=== PATIENT | female | born 1975 | race Caucasian/White ===

== ENCOUNTER 2017-04-23 05:27 | Emergency (ER) | payer OTHER ==
[~2017-04-23 05:27] MED LIST: ALBUTEROL INHALER; ALDACTONE25 MG; ATENOLOL50 MG PO; GLIPIZIDE5 MG PO; LEVOTHROID50 MCG PO; LEVOTHYROXINE50 MCG PO; MECLIZINE HCL12.5 MG PO; METFORMIN HCL500 MG PO; NORCO 5-325 TA1 EACH PO; OMEPRAZOLE40 MG PO; PANTOPRAZOLE SO40 MG PO; PROMETHAZINE HC25 M1 PO; PROZAC40 MG PO; SYNTHROID200 MCG PO; TOPAMAX100 MG PO; ZANAFLEX4 M1 PO; ZOLPIDEM TARTRA10 MG PO
[2017-04-23] MEDS ORDERED: SODIUM CHLORIDE 0.9% 1000ML 1,000 ML ONE (06:12)
[2017-04-23 06:13] LABS: BASOPHILS % 0.7 % (0.0-1.0); BILIRUBIN,URINE 1+ (NEGATIVE); EOSINOPHILS # (AUTO) 0.1 (0.0-0.4); EOSINOPHILS % 2.2 % (0.0-6.0); HEMATOCRIT 43.9 % (34.2-44.1); HEMOGLOBIN 14.4 g/dL (12.0-16.0); KETONES,URINE NEGATIVE (NEGATIVE); LEUKOCYTE ESTERASE ,URINE NEGATIVE (NEGATIVE); LYMPHOCYTES # (AUTO) 1.3 (1.0-3.2); LYMPHOCYTES % 22.1 % (18.0-39.1); MEAN CORPUSCULAR HEMOGLOBIN 28.4 pg (28-32); MEAN CORPUSCULAR HGB CONC 32.8 g/dL (31-35); MEAN CORPUSCULAR VOLUME 86.6 fL (81-99); MONOCYTES # (AUTO) 0.6 (0.2-0.8); MONOCYTES % 9.5 % (4.4-11.3); NEUTROPHILS # (AUTO) 3.7 (2.1-6.9); NEUTROPHILS % 64.6 % (38.7-80.0); NITRITE,URINE NEGATIVE (NEGATIVE); PLATELET COUNT 183 x10e3/uL (140-360); PROTEIN,URINE DIPSTICK NEGATIVE (NEGATIVE); RED BLOOD COUNT 5.07 x10e6/uL (3.6-5.1); RED CELL DISTRIBUTION WIDTH 13.3 % (11.7-14.4); URINE UROBILINOGEN 1 mg/dL (0.2 - 1)
[2017-04-23] MEDS ORDERED: KETOROLAC TROMETHAMINE 30 MG/ML VIAL ONE (06:14)
[2017-04-23] MEDS ORDERED: HYDROMORPHONE 1MG/1ML INJ ONE (06:15)
[2017-04-23] MEDS ORDERED: ONDANSETRON HCL INJ 2 MG/ML VIAL ONE (06:15)
[2017-04-23 06:16] LABS: PREGNANCY TEST, URINE NEGATIVE (NEGATIVE)
[2017-04-23 06:25] LABS: ALANINE AMINOTRANSFERASE 19 IU/L (0-55); ALBUMIN 3.9 g/dL (3.5-5.0); ALBUMIN/GLOBULIN RATIO 1.1 (0.8-2.0); ALKALINE PHOSPHATASE 60 IU/L (40-150); ANION GAP 15.1 mmol/L (8-16); BLOOD UREA NITROGEN 15 mg/dL (7-26); BUN/CREATININE RATIO 17 (6-25); CARBON DIOXIDE 24 mmol/L (22-29); CHLORIDE 106 mmol/L (98-107); CLARITY,URINE HAZY (CLEAR); COLOR,URINE YELLOW (YELLOW); CREATININE, SERUM 0.86 mg/dL (0.57-1.11); EST GLOMERULAR FILTRATION RATE > 60 ML/MIN (60-); GLUCOSE 185 mg/dL (74-118); MAGNESIUM 1.9 MG/DL (1.3-2.1); POTASSIUM 4.1 mmol/L (3.5-5.1); SODIUM 141 mmol/L (136-145)
[2017-04-23 06:26] LABS: BACTERIA,URINE MODERATE /HPF; EPITHELIAL CELLS,URINE MODERATE /LPF; WBC,URINE (MAN) 0-5 /HPF (0-5)
--- NOTE | 2017-04-23 07:47 | Diagnostic Imaging Report ---
PROCEDURE: CT ABDOMEN AND PELVIS WITHOUT CONTRAST TECHNIQUE: The abdomen and pelvis were scanned utilizing a multidetector helical scanner from the diaphragm to the lesser trochanter. No oral or intravenous contrast was administered per referring physician request. Coronal and sagittal multiplanar reformations were obtained. COMPARISON: 09/20/2016. INDICATIONS: LEFT LOWER ABDOMEN PAIN FINDINGS: ABSENCE OF INTRAVENOUS CONTRAST DECREASES SENSITIVITY FOR DETECTION OF FOCAL LESIONS AND VASCULAR PATHOLOGY. Examination is further limited by patient body habitus, resulting in beam hardening artifact from multiple contact points with the scanner gantry. LOWER THORAX: 3 mm nodule along the right major fissure is unchanged and likely represents an intrapulmonary lymph node. Ground glass opacity laterally within the right lower lobe compatible with subsegmental atelectasis. HEPATOBILIARY: No focal hepatic lesion or intrahepatic biliary ductal dilatation. The gallbladder has been removed. SPLEEN: No splenomegaly. PANCREAS: No focal masses or ductal dilatation. ADRENALS: No adrenal nodules. KIDNEYS/URETERS: Punctate nonobstructing calculus in the interpolar right kidney is unchanged. Punctate adjacent nonobstructing calculi in the lower pole of the left kidney are unchanged. No ureteral or bladder calculi. No hydronephrosis. PELVIC ORGANS/BLADDER: Urinary bladder is incompletely distended but otherwise unremarkable. Uterus is anteflexed and appears normal. No adnexal mass. PERITONEUM / RETROPERITONEUM: No free air or fluid. LYMPH NODES: No pelvic sidewall, retroperitoneal, or mesenteric lymphadenopathy. VESSELS: Limited evaluation without intravenous contrast. The abdominal aorta is non-aneurysmal. GI TRACT: The large bowel shows no evidence of distention or wall thickening. Gas and fecal material are noted throughout. A few diverticula are again identified along the descending and sigmoid colon without evidence of diverticulitis. The appendix is normal. The stomach is collapsed with prominence of the rugal folds. Small diverticula arise from the fourth portion of the duodenum, unchanged. No small bowel dilatation to suggest obstruction. BONES AND SOFT TISSUES: No focal soft tissue abnormalities. No osseous destructive lesions. Multilevel degenerative disc changes of the thoracic and lumbar spine. IMPRESSION: No acute intra-abdominal or pelvic CT abnormalities. Bilateral nonobstructing renal calculi. Sigmoid diverticulosis without evidence of diverticulitis. Dictated by: Juanjose Sathl M.D. on 04/23/2017 at 7:47 Electronically approved by: Juanjose Stahl M.D. on 04/23/2017 at 7:47
[2017-04-23 08:30] VITALS: BP 128/74
== END 2017-04-23 08:54 | disposition home or self-care (01) ==
LOC: ER 05:27
DX: N20.0 Calculus of kidney (principal); E11.9 Type 2 diabetes mellitus without complications; E03.9 Hypothyroidism, unspecified; E28.2 Polycystic ovarian syndrome
CPT/HCPCS: 36415; 74176; 80053; 81001; 81025; 83735; 85025; 87086; 99283; J1170; J1885; J2405; J7030

== ENCOUNTER → 2017-05-15 | Day surgery (SDC) | payer OTHER ==
[2017-05-12 12:55] LABS: BASOPHILS % 0.4 % (0.0-1.0); EOSINOPHILS # (AUTO) 0.1 (0.0-0.4); HEMATOCRIT 40.8 % (34.2-44.1); HEMOGLOBIN 13.7 g/dL (12.0-16.0); LYMPHOCYTES # (AUTO) 1.5 (1.0-3.2); LYMPHOCYTES % 30.1 % (18.0-39.1); MEAN CORPUSCULAR HEMOGLOBIN 28.4 pg (28-32); MEAN CORPUSCULAR HGB CONC 33.6 g/dL (31-35); MEAN CORPUSCULAR VOLUME 84.6 fL (81-99); MONOCYTES # (AUTO) 0.5 (0.2-0.8); MONOCYTES % 9.8 % (4.4-11.3); NEUTROPHILS # (AUTO) 2.9 (2.1-6.9); NEUTROPHILS % 57.1 % (38.7-80.0); PLATELET COUNT 158 x10e3/uL (140-360); RED BLOOD COUNT 4.82 x10e6/uL (3.6-5.1)
[~2017-05-15] MED LIST changes: +BELLADONNA/OPIUM 60 MG SUPP PR ONE; +CEFAZOLIN SOD 1 GM VIAL ONE; +CEFTRIAXONE SOD 1 GM VIAL ONE; +DEXAMETHASONE SOD PHOS INJ 4 MG/ML VIAL ONE; +DICYCLOMINE HCL20 MG PO; +DIPHENOXYLATE-1 EACH PO; +FENTANYL CITRATE/PF 100MCG/2 ML INJ ONE; +FLOMAX0.4 MG PO; +FLUCONAZOLE100 MG PO; +HYDROXYZINE HCL50 MG PO; +IBUPROFEN400 MG PO; +IOPAMIDOL 610MG/1ML 300 MG/ML VIAL IV ONE; +LIDOCAINE HCL 2% LOCAL INJ 5 ML SDV VIAL INJ ONE; +LORZONE750 MG PO; +METRONIDAZOLE45 GM TOP; +MIDAZOLAM HCL 2 MG/2 ML VIAL ONE; +MINOCYCLINE HCL50 MG PO; +MONTELUKAST SOD10 MG PO; +NEOMYCIN-POLYMY10 M1 EACH EAR; +NORCO 7.5-3251 EACH PO; +ONDANSETRON HCL INJ 2 MG/ML VIAL ONE; +PENCILLIN V PO250 MG PO; +PRO AIR INH; +PROPOFOL IV EMULSION 10 MG/ML 20 ML VIAL ONE; +REGLAN10 MG PO; +SEVOFLURANE INHAL SOLN 250 ML PEN BTL ONE; +ZOFRAN ODT4 MG PO
--- OUTSIDE RECORDS SUMMARY | 2017-05-15 07:38 | XMS REPORT | Continuity of Care Document ---
Author Author [facility] Organization [facility] Address [address] [place] [address] Phone Unavailable Care Team Providers Care Pizzamaker Name Role Phone CARLOTTA MARIO DO PCP Insurance Providers Guarantor Shakeel Cordero Address [address] [place] [address] Email NONE Payer [facility] Policy Number [id number] Subscriber's Name ConsueloLuisShakeel R Relationship 18 Self / Same As Patient Group Number [id number] Group Name [employer] Effective Date 06 Advance Directives Directive Response Recorded Date/Time Does the patient have an advance directive? No 06/10/12 11:10pm If yes, is advance directive [facility]? No 04/17/08 2:10pm If not on file with [facility] will patient provide a copy? No 03/18/12 1:55pm Do you have a Directive to Physician? No 04/23/17 7:18am Do you have a Medical Power of Doll Wig Maker? No 04/23/17 7:18am Do you have an out of hospital Do Not Resuscitate Order? No 04/23/17 7:18am Do you have any special needs we should be aware of? No 04/23/17 7:18am Do you have a support person here with you today? No 04/23/17 7:18am Did patient receive Notice of Privacy Practices? Yes 04/23/17 7:18am Did patient receive patient rights and responsibilities? Yes 04/23/17 7:18am Problems Medical Problem Onset Date Status Renal colic Unknown Acute Sinusitis Unknown Acute Urinary tract infection Unknown Acute Medications Current Home Medications Medication Dose Units Route Directions Days Qty Instructions Start Date Glipizide 5 Mg Tablet 5 Mg Oral Daily Levothyroxine Sodium 50 Mcg Tablet 50 Mcg Oral Daily 30 Tab Past Home Medications Medication Directions Ordered Status Albuterol Inhaler , As Needed Discontinued Atenolol 50 Mg Tablet, 50 Mg Oral Daily Discontinued Fluoxetine Hcl (Prozac) 40 Mg Capsule, 40 Mg Oral Daily Discontinued Hydrocodone Bit/Acetaminophen ([place] 5-325 Tablet) 1 Each Tablet, 1 Tab Oral Every 6 Hours as needed Discontinued Levothyroxine Sodium (Synthroid) 200 Mcg Tablet, 0.25 Mcg Oral Daily Discontinued Levothyroxine Sodium (Levothroid) 50 Mcg Tablet, 50 Mcg Oral Daily Discontinued Meclizine Hcl 12.5 Mg Tablet, 12.5 Mg Oral As Needed Discontinued Omeprazole 40 Mg Capsule.dr, 40 Mg Oral Daily Discontinued Pantoprazole Sodium (Protonix) 40 Mg Tablet.dr, 40 Mg Oral Daily Discontinued Promethazine Hcl 25 Mg Tablet, 25 Mg Oral As Needed Discontinued Spironolactone (Aldactone) 25 Mg Tablet, Discontinued Tizanidine Hcl (Zanaflex) 4 Mg Capsule, 4 Mg Oral Three Times A Day as needed Discontinued Topiramate (Topamax*) 100 Mg Tablet, 100 Mg Oral Discontinued Zolpidem Tartrate 10 Mg Tablet, 10 Mg Oral Bedtime as needed Discontinued Social History Social History Problem Response Recorded Date/Time Onset Date Status Hx Psychiatric Problems No 06/10/2012 11:10pm Not Applicable Not Applicable Hx Eating Disorder No 06/10/2012 11:10pm Not Applicable Not Applicable Hx Substance Use Disorder No 06/10/2012 11:10pm Not Applicable Not Applicable Hx Depression No 06/10/2012 11:10pm Not Applicable Not Applicable Hx Alcohol Use No 06/10/2012 11:10pm Not Applicable Not Applicable Hx Substance Use Treatment No 06/10/2012 11:10pm Not Applicable Not Applicable Hx Physical Abuse No 06/10/2012 11:10pm Not Applicable Not Applicable Hospital Discharge Instructions No hospital discharge instruction information available. Plan of Care Discharge Date 04/23/17 8:54am Disposition HOME, SELF-CARE Condition at Discharge Stable Instructions/Education Provided Kidney Stones Forms Provided Work/School Excuse Prescriptions See Medication Section Referrals CARLOTTA MARIO Address: [address] [place] [id number] Additional Instructions/Education follow up with pcp take meds as directed Functional Status No functional status information available. Allergies, Adverse Reactions, Alerts No known allergies. Immunizations No immunization information available. Vital Signs Acute Vital Signs Vital Response Date/Time Blood Pressure 128/74 mm Hg 04/23/2017 8:30am Results Laboratory Results Test Name Result Units Flags Reference Collection Date/Time Result Date/ Time Comments White Blood Count 5.78 x10e3/uL 4.8-10.8 04/23/2017 5:45am 04/23/2017 6 :15am Red Blood Count 5.07 x10e6/uL 3.6-5.1 04/23/2017 5:45am 04/23/2017 6: 15am Hemoglobin 14.4 g/dL 12.0-16.0 04/23/2017 5:45am 04/23/2017 6:15am Hematocrit 43.9 % 34.2-44.1 04/23/2017 5:45am 04/23/2017 6:15am Mean Corpuscular Volume 86.6 fL 81-99 04/23/2017 5:45am 04/23/2017 6: 15am Mean Corpuscular Hemoglobin 28.4 pg 28-32 04/23/2017 5:45am 04/23/2017 6:15am Mean Corpuscular Hemoglobin Concent 32.8 g/dL 31-35 04/23/2017 5:45am 04/23/2017 6:15am Red Cell Distribution Width 13.3 % 11.7-14.4 04/23/2017 5:45am 2017 6:15am Platelet Count 183 x10e3/uL 140-360 04/23/2017 5:45am 04/23/2017 6: 15am Neutrophils (%) (Auto) 64.6 % 38.7-80.0 04/23/2017 5:45am 04/23/2017 6: 15am Lymphocytes (%) (Auto) 22.1 % 18.0-39.1 04/23/2017 5:45am 04/23/2017 6: 15am Monocytes (%) (Auto) 9.5 % 4.4-11.3 04/23/2017 5:45am 04/23/2017 6: 15am Eosinophils (%) (Auto) 2.2 % 0.0-6.0 04/23/2017 5:45am 04/23/2017 6: 15am Basophils (%) (Auto) 0.7 % 0.0-1.0 04/23/2017 5:45am 04/23/2017 6:15am IM GRANULOCYTES % 0.9 % 0.0-1.0 04/23/2017 5:45am 04/23/2017 6:15am Neutrophils # (Auto) 3.7 2.1-6.9 04/23/2017 5:45am 04/23/2017 6:15am Lymphocytes # (Auto) 1.3 1.0-3.2 04/23/2017 5:45am 04/23/2017 6:15am Monocytes # (Auto) 0.6 0.2-0.8 04/23/2017 5:45am 04/23/2017 6:15am Eosinophils # (Auto) 0.1 0.0-0.4 04/23/2017 5:45am 04/23/2017 6:15am Basophils # (Auto) 0.0 0.0-0.1 04/23/2017 5:4504/23/2017 6:15am Absolute Immature Granulocyte (auto 0.05 x10e3/uL 0-0.1 04/23/2017 5: 4504/23/2017 6:15am Urine Color YELLOW YELLOW 04/23/2017 5:4504/23/2017 6:26am Urine Clarity HAZY CLEAR 04/23/2017 5:4504/23/2017 6:26am Urine Specific [place] 1.025 1.010-1.025 04/23/2017 5:45am 2017 6:16am Urine pH 5 5 - 7 04/23/2017 5:45am 04/23/2017 6:16am Urine Leukocyte Esterase NEGATIVE NEGATIVE 04/23/2017 5:45am 2017 6:16am Urine Nitrite NEGATIVE NEGATIVE 04/23/2017 5:45am 04/23/2017 6:16am Urine Protein NEGATIVE NEGATIVE 04/23/2017 5:45am 04/23/2017 6:16am Urine Glucose (UA) NEGATIVE NEGATIVE 04/23/2017 5:45am 04/23/2017 6: 16am Urine Ketones NEGATIVE NEGATIVE 04/23/2017 5:45am 04/23/2017 6:16am Urine Urobilinogen 1 mg/dL 0.2 - 1 04/23/2017 5:45am 04/23/2017 6:16am Urine Bilirubin 1+ H NEGATIVE 04/23/2017 5:45am 04/23/2017 6:16am Urine Blood NEGATIVE NEGATIVE 04/23/2017 5:45am 04/23/2017 6:16am Urine WBC 0-5 /HPF 0-5 04/23/2017 5:45am 04/23/2017 6:26am Urine RBC NONE /HPF 0-5 04/23/2017 5:45am 04/23/2017 6:26am Urine Bacteria MODERATE /HPF H NONE 04/23/2017 5:45am 04/23/2017 6:26am Urine Epithelial Cells MODERATE /LPF NONE 04/23/2017 5:45am 04/23/2017 6:26am Urine Test NEGATIVE NEGATIVE 04/23/2017 5:45am 04/23/2017 6 :16am Sodium Level 141 mmol/L 136-145 04/23/2017 5:45am 04/23/2017 6:31am Potassium Level 4.1 mmol/L 3.5-5.1 04/23/2017 5:45am 04/23/2017 6:31am Chloride Level 106 mmol/L 98-107 04/23/2017 5:45am 04/23/2017 6:31am Carbon Dioxide Level 24 mmol/L 22-04/23/2017 5:45am 04/23/2017 6: 31am Anion Gap 15.1 mmol/L 8-16 04/23/2017 5:45am 04/23/2017 6:31am Blood Urea Nitrogen 15 mg/dL 7-04/23/2017 5:45am 04/23/2017 6:31am Creatinine 0.86 mg/dL 0.57-1.11 04/23/2017 5:45am 04/23/2017 6:31am BUN/Creatinine Ratio 17 6-25 04/23/2017 5:45am 04/23/2017 6:31am Estimat Glomerular Filtration Rate > 60 ML/MIN 60- 04/23/2017 5:45am 6:31am Ranges were taken from the National Kidney Disease Education Program and the National Kidney Foundation literature. Reference ranges: 60 or greater: Normal 16-59 (for 3 consecutive months): Chronic kidney disease 15 or less: Kidney failure Glucose Level 185 mg/dL H 74-118 04/23/2017 5:45am 04/23/2017 6:31am Calcium Level 9.0 mg/dL 8.4-10.2 04/23/2017 5:45am 04/23/2017 6:31am Magnesium Level 1.9 MG/DL 1.3-2.1 04/23/2017 5:45am 04/23/2017 6:31am Total Bilirubin 1.5 mg/dL H 0.2-1.2 04/23/2017 5:45am 04/23/2017 6:31am Aspartate Amino Transf (AST/SGOT) 16 IU/L 5-34 04/23/2017 5:45am 2017 6:31am Alanine Aminotransferase (ALT/SGPT) 19 IU/L 0-55 04/23/2017 5:45am 6:31am Total Protein 7.4 g/dL 6.5-8.1 04/23/2017 5:45am 04/23/2017 6:31am Albumin 3.9 g/dL 3.5-5.0 04/23/2017 5:45am 04/23/2017 6:31am Globulin 3.5 g/dL 2.3-3.5 04/23/2017 5:45am 04/23/2017 6:31am Albumin/Globulin Ratio 1.1 0.8-2.0 04/23/2017 5:45am 04/23/2017 6: 31am Alkaline Phosphatase 60 IU/L 40-150 04/23/2017 5:45am 04/23/2017 6: 31am Procedures Procedure Status Date Provider(s) CT of abdomen and pelvis without contrast Active 09/20/[address] of abdomen and pelvis without contrast Active 04/23/17 DOYLE VOGEL MD Encounters Encounter Location Arrival/Admit Date Discharge/Depart Date Attending Provider Departed Emergency Room [facility] 04/23/17 5:27am 8:54am DOYLE VOGEL MD Departed Emergency Room [facility] Patients [facility] 09/20/16 5:48am 10:55am ROSA MARIA LEE MD
--- OUTSIDE RECORDS SUMMARY | 2017-05-15 07:38 | XMS REPORT ---
Author Author [facility] Address Unknown Phone Unavailable Care Team Providers Care Company Dancer Name Role Phone DOYLE VOGEL Unavailable Unavailable Problems This patient has no known problems. Allergies, Adverse Reactions, Alerts This patient has no known allergies or adverse reactions. Medications This patient has no known medications. Results Test Description Test Time Test Comments Text Results Atomic Results Result Comments CT ABDOMEN/PELVIS WO [place] [address] Patient Name: SHAKEEL CORDERO MR #: [id number] : 1975 Age/Sex: 41/F Req #: [id number] Adm Physician: Ordered by: DOYLE VOGEL MD Report #: [id number] Location: ER Room/Bed: Procedure: [id number] CT/CT ABDOMEN/PELVIS WO Exam Date: 04/23/17 Exam Time: 717 REPORT STATUS: Signed PROCEDURE: CT ABDOMEN AND PELVIS WITHOUT CONTRAST TECHNIQUE: The abdomen and pelvis were scanned utilizing a multidetector helical scanner from the diaphragm to the lesser trochanter. No oral or intravenous contrast was administered per referring physician request. Coronal and sagittal multiplanar reformations were obtained. COMPARISON: 09/20/2016. INDICATIONS: LEFT LOWER ABDOMEN PAIN FINDINGS: ABSENCE OF INTRAVENOUS CONTRAST DECREASES SENSITIVITY FOR DETECTION OF FOCAL LESIONS AND VASCULAR PATHOLOGY. Examination is further limited by patient body habitus, resulting in beam hardening artifact from multiple contact points with the scanner gantry. LOWER THORAX: 3 mm nodule along the right major fissure is unchanged and likely represents an intrapulmonary lymph node. Ground glass opacity laterally within the right lower lobe compatible with subsegmental atelectasis. HEPATOBILIARY: No focal hepatic lesion or intrahepatic biliary ductal dilatation. The gallbladder has been removed. SPLEEN: No splenomegaly. PANCREAS: No focal masses or ductal dilatation. ADRENALS: No adrenal nodules. KIDNEYS/URETERS: Punctate nonobstructing calculus in the interpolar right kidney is unchanged. Punctate adjacent nonobstructing calculi in the lower pole of the left kidney are unchanged. No ureteral or bladder calculi. No hydronephrosis. PELVIC ORGANS/BLADDER: Urinary bladder is incompletely distended but otherwise unremarkable. Uterus is anteflexed and appears normal. No adnexal mass. PERITONEUM / RETROPERITONEUM: No free air or fluid. LYMPH NODES: No pelvic sidewall, retroperitoneal, or mesenteric lymphadenopathy. VESSELS: Limited evaluation without intravenous contrast. The abdominal aorta is non-aneurysmal. GI TRACT: The large bowel shows no evidence of distention or wall thickening. Gas and fecal material are noted throughout. A few diverticula are again identified along the descending and sigmoid colon without evidence of diverticulitis. The appendix is normal. The stomach is collapsed with prominence of the rugal folds. Small diverticula arise from the fourth portion of the duodenum , unchanged. No small bowel dilatation to suggest obstruction. BONES AND SOFT TISSUES: No focal soft tissue abnormalities. No osseous destructive lesions. Multilevel degenerative disc changes of the thoracic and lumbar spine. IMPRESSION: No acute intra-abdominal or pelvic CT abnormalities. Bilateral nonobstructing renal calculi. Sigmoid diverticulosis without evidence of diverticulitis. Dictated by: Anna Burnett M.D. on 04/23/2017 at 7:47 Electronically approved by: Anna Burnett M.D. on 04/23/2017 at 7:47 Dictated By: ANNA BURNETT MD 6 Transcribed By: PATSY on 04/23/17746 COPY TO: DOYLE VOGEL MD
[2017-05-15 08:54] LABS: ANION GAP 11.6 mmol/L (8-16); BLOOD UREA NITROGEN 14 mg/dL (7-26); BUN/CREATININE RATIO 16 (6-25); CARBON DIOXIDE 28 mmol/L (22-29); CHLORIDE 104 mmol/L (98-107); CREATININE, SERUM 0.86 mg/dL (0.57-1.11); EST GLOMERULAR FILTRATION RATE > 60 ML/MIN (60-); GLUCOSE 182 mg/dL (74-118); POTASSIUM 4.6 mmol/L (3.5-5.1); SODIUM 139 mmol/L (136-145)
--- NOTE | 2017-05-18 10:06 | Operative Report ---
DATE OF PROCEDURE: May 15, 2017 PREOPERATIVE DIAGNOSIS: Bilateral kidney stones. POSTOPERATIVE DIAGNOSIS: Bilateral kidney stones. OPERATIVE PROCEDURES PERFORMED 1. Cystoscopy. 2. Bilateral retrograde pyelogram. 3. Bilateral ureteroscopy. 4. Placement of right ureteral stent. ANESTHESIA: General anesthesia. ESTIMATED BLOOD LOSS: Minimal. INDICATIONS: Ms. Sary Cline is a 41-year-old woman with history of severe, significant, intermittent, bilateral flank pain, left worse than right. Recent CT scan revealed bilateral kidney stones. She now presents for diagnosis and potential management of this problem. PROCEDURE IN DETAIL: The patient was brought into the operating room and placed in the supine position. After administration of general anesthesia, she was placed in the dorsal lithotomy position and prepped and draped in the usual sterile fashion. Cystourethroscopy was performed using a 21-Burundian cystoscope. The anterior and posterior urethra were noted to be normal. The bladder was entered without difficulty. Upon entrance into the bladder, the ureteral orifices were in normal anatomical position and produced clear efflux. Using a 5-Burundian open cone catheter, bilateral retrograde pyelograms were performed. This revealed no obvious filling defects seen in the ureters or in the collecting systems. The ureters appeared somewhat scarred and narrowed on both sides, more so on the right than on the left. Drainage of both systems was reasonable, although it was a little bit delayed on the right side. A 0.035 guidewire was placed into the left renal pelvis under fluoroscopic guidance, and a 02/20, 36-cm ureteral access sheath was placed. Flexible ureteroscopy was then performed. The visualized proximal and mid ureter was normal. There was a pale appearance to the mucosa noted throughout, but no obvious papillary lesions, erythematous patches or calcifications were seen. The renal pelvis was entered, and all the calices were visualized. No obvious calcifications were noted, although there were some Stephen plaques seen in the lower pole particularly. Once visualization of the left renal pelvis and its calices was complete, the ureteroscope was carefully removed. A wire was then placed on the right side, and a ureteral access sheath was again placed into the right distal ureter. Attempt was made at ureteroscopy on this side. The ureter on the right side was noted to have more significant scarring and was completely narrowed. It was impossible to enter the right proximal ureter due to this narrowing. A decision was made to leave a stent and to try again at another time. A 26-cm, 6-Burundian stent was then placed such that 1 coil was in the renal pelvis and the 2nd coil was in the bladder. The string was allowed to exit the urethral meatus. The bladder was then drained in its entirety. The cystoscope and sheath were removed. The patient was returned to the supine position, and anesthesia was reversed. She was transferred to her bed and taken to the postanesthesia care unit in good condition. Of note, the needle and instrument counts were correct at the conclusion of the case. Job#: [id number]
== END | disposition home or self-care (01) ==
LOC: OR 07:35
PROVIDERS: ATTEND Urology
DX: N20.0 Calculus of kidney (principal); N28.89 Other specified disorders of kidney and ureter; G47.33 Obstructive sleep apnea (adult) (pediatric); J45.909 Unspecified asthma, uncomplicated; E66.01 Morbid (severe) obesity due to excess calories; E11.9 Type 2 diabetes mellitus without complications; K21.9 Gastro-esophageal reflux disease without esophagitis; Z01.810 Encounter for preprocedural cardiovascular examination; Z01.812 Encounter for preprocedural laboratory examination; Z68.41 Body mass index [BMI] 40.0-44.9, adult
CPT/HCPCS: 36415 ×2; 52332; 52351; 74420; 80048; 81025; 82948; 85025; 93005; C1766; J0696; J1100; J2001; J2250; J2405; Q9967; C2617; J0690

== ENCOUNTER 2018-07-27 03:53 | Emergency (ER) | payer OTHER ==
[~2018-07-27] VITALS: Ht 157.5 cm; Wt 133.8 kg
[~2018-07-27 03:53] MED LIST changes: +ATORVASTATIN CA20 MG PO; -BELLADONNA/OPIUM 60 MG SUPP PR ONE; -CEFAZOLIN SOD 1 GM VIAL ONE; -CEFTRIAXONE SOD 1 GM VIAL ONE; -DEXAMETHASONE SOD PHOS INJ 4 MG/ML VIAL ONE; -FENTANYL CITRATE/PF 100MCG/2 ML INJ ONE; -IOPAMIDOL 610MG/1ML 300 MG/ML VIAL IV ONE; -LIDOCAINE HCL 2% LOCAL INJ 5 ML SDV VIAL INJ ONE; -MIDAZOLAM HCL 2 MG/2 ML VIAL ONE; -ONDANSETRON HCL INJ 2 MG/ML VIAL ONE; -PROPOFOL IV EMULSION 10 MG/ML 20 ML VIAL ONE; -SEVOFLURANE INHAL SOLN 250 ML PEN BTL ONE
== END 2018-07-27 04:20 | disposition left against medical advice (07) ==
LOC: ER 03:53
DX: R05 Cough (principal)

== ENCOUNTER 2018-08-21 14:48 | Emergency (ER) | payer OTHER ==
[~2018-08-21] VITALS: Ht 157.5 cm; Wt 133.8 kg
[2018-08-21 16:27] LABS: BASOPHILS % 0.3 % (0.0-1.0); EOSINOPHILS # (AUTO) 0.1 (0.0-0.4); EOSINOPHILS % 1.3 % (0.0-6.0); HEMATOCRIT 40.4 % (34.2-44.1); HEMOGLOBIN 12.9 g/dL (12.0-16.0); LYMPHOCYTES # (AUTO) 1.2 (1.0-3.2); LYMPHOCYTES % 18.7 % (18.0-39.1); MEAN CORPUSCULAR HGB CONC 31.9 g/dL (31-35); MEAN CORPUSCULAR VOLUME 87.6 fL (81-99); MONOCYTES # (AUTO) 0.7 (0.2-0.8); MONOCYTES % 10.4 % (4.4-11.3); NEUTROPHILS # (AUTO) 4.3 (2.1-6.9); NEUTROPHILS % 68.2 % (38.7-80.0); PLATELET COUNT 177 x10e3/uL (140-360); RED BLOOD COUNT 4.61 x10e6/uL (3.6-5.1); RED CELL DISTRIBUTION WIDTH 13.9 % (11.7-14.4)
[2018-08-21 16:48] LABS: ALANINE AMINOTRANSFERASE 27 IU/L (0-55); ALBUMIN 3.1 g/dL (3.5-5.0); ALKALINE PHOSPHATASE 63 IU/L (40-150); ANION GAP 10.7 mmol/L (8-16); BLOOD UREA NITROGEN 8 mg/dL (7-26); BUN/CREATININE RATIO 11 (6-25); CALCIUM 8.9 mg/dL (8.4-10.2); CARBON DIOXIDE 25 mmol/L (22-29); CHLORIDE 104 mmol/L (98-107); CREATININE, SERUM 0.76 mg/dL (0.57-1.11); EST GLOMERULAR FILTRATION RATE > 60 ML/MIN (60-); GLUCOSE 97 mg/dL (74-118); POTASSIUM 3.7 mmol/L (3.5-5.1); SODIUM 136 mmol/L (136-145)
[2018-08-21 16:49] LABS: AMYLASE 26 U/L (25-125); LIPASE 8 U/L (8-78)
[2018-08-21 17:58] LABS: BILIRUBIN,URINE SMALL (NEGATIVE); CLARITY,URINE SL CLOUDY (CLEAR); COLOR,URINE YELLOW (YELLOW); KETONES,URINE 1+ (NEGATIVE); LEUKOCYTE ESTERASE ,URINE SMALL (NEGATIVE); NITRITE,URINE NEGATIVE (NEGATIVE); PROTEIN,URINE DIPSTICK NEGATIVE (NEGATIVE); URINE UROBILINOGEN 0.2 mg/dL (0.2 - 1)
[2018-08-21 18:07] LABS: PREGNANCY TEST, URINE NEGATIVE (NEGATIVE)
[2018-08-21 18:09] LABS: BACTERIA,URINE MODERATE /HPF; EPITHELIAL CELLS,URINE MANY /LPF; TRANSITIONAL EPI CELLS,URINE MODERATE
[2018-08-21] MEDS ORDERED: ONDANSETRON HCL INJ 2MG/ML 2ML 2 MG/ML VIAL IV ONE (18:53)
[2018-08-21] MEDS ORDERED: MORPHINE SULFATE 2 MG/ML SYR 1ML IV STA (18:53)
[2018-08-21] MEDS ORDERED: MORPHINE SULFATE INJ 4 MG/ML INJ 1ML IV ONE (19:00)
[2018-08-21] MEDS ORDERED: SODIUM CHLORIDE 0.9% 1000ML 1,000 ML IV SCH (19:00)
--- NOTE | 2018-08-21 19:12 | Diagnostic Imaging Report ---
EXAM: CT of the abdomen and pelvis WITH contrast HISTORY: abd pain, nausea, diarrhea COMPARISON: CT of the pelvis April 23, 2017. TECHNIQUE: The abdomen and pelvis were scanned utilizing a multidetector helical scanner. Coronal and sagittal reformats are provided. PROTOCOL: Routine IV CONTRAST: 100 cc of Isovue-370. ORAL CONTRAST: None, which limits sensitivity and specificity of the exam. RADIATION DOSE: Total DLP: 845.23 mGy*cm Estimated effective dose: (DLP x 0.015 x size factor) Dose modulation, iterative reconstruction, and/or weight based adjustment of the mA/kV was utilized to reduce the radiation dose to as low as reasonably achievable. COMPLICATIONS: None FINDINGS: Soft tissue attenuation partially limit evaluation. LOWER THORAX: Unremarkable. HEPATOBILIARY: No mass. No biliary dilation. Metallic clips in the right upper quadrant of the abdomen are compatible with prior cholecystectomy. SPLEEN: Mildly enlarged, 13.5 cm. PANCREAS: No focal masses or ductal dilatation. Mild diffuse parenchymal atrophy. ADRENALS: No discrete adrenal nodule. KIDNEYS/URETERS: A right 6 mm nonobstructing stone near the inferior pole. PELVIC ORGANS/BLADDER: The uterus is mildly anteflexed. GI TRACT: No dilation or wall thickening identified. The appendix is normal. Fluid density within the distal colon. PERITONEUM / RETROPERITONEUM: No free air or fluid. LYMPH NODES: No pathologically enlarged lymph node. VESSELS: Unremarkable. BONES: No aggressive osseous lesion or acute fracture. SOFT TISSUES: Unremarkable. IMPRESSION: 1. A nonobstructing 6 mm right renal stone. 2. Fluid density within the distal colon, compatible with the provided history of diarrhea. 3. Splenomegaly. Signed by: Dr. Tuan Jordan D.O., M.M.M. on 08/21/2018 7:09 PM
[2018-08-21] MEDS ORDERED: IOPAMIDOL 370 MG/ML 200 ML INFUS..BTL INJ ONE (22:50)
[2018-08-21] MEDS ORDERED: SODIUM CHLORIDE 0.9% 50ML 50 ML ONE (22:50)
== END 2018-08-21 20:26 | disposition home or self-care (01) ==
LOC: ER 14:48
DX: R19.7 Diarrhea, unspecified (principal); N30.01 Acute cystitis with hematuria
CPT/HCPCS: 36415; 74177; 80053; 81001; 81025; 82150; 83690; 83735; 85025; 96374; 99284; J2270; J2405; J7030; Q9967

== ENCOUNTER → 2019-10-18 | Day surgery (SDC) | payer OTHER ==
[~2019-10-18] MED LIST changes: +FENTANYL CITRATE/PF 100MCG/2 ML INJ ONE; +INSULIN REGULAR, HUMAN 100 UNIT/1 ML 3ML VIAL ONE; +LIDOCAINE HCL 2% LOCAL INJ 5 ML SDV VIAL INJ ONE; +METOCLOPRAMIDE HCL 10 MG/2ML VIAL ONE; +MIDAZOLAM HCL 2 MG/2 ML VIAL ONE; +PANTOPRAZOLE 40 MG 10ML VIAL ONE; +PROPOFOL IV EMULSION 10 MG/ML 20 ML VIAL ONE
[2019-10-18 09:40] VITALS: BP 126/66
--- NOTE | 2019-10-18 10:02 | Operative Report ---
DATE OF PROCEDURE: 10/18/2019 SURGEON: Robert Dale MD PROCEDURES: EGD with polypectomy, pyloric channel dilatation and biopsies. INDICATIONS FOR EGD: Upper abdominal pain, nausea, history of melena. MEDICATIONS: The patient was done under MAC, please see anesthesiologist's note. PROCEDURE IN DETAIL: With the patient in the left lateral decubitus position, the flexible fiberoptic Olympus gastroscope was introduced into the esophagus under direct visualization without any difficulty. There was some patchy erythema noted in distal esophagus. Minute tongues of velvety red mucosa were noted to extend proximally from the GE junction. Biopsies were obtained to rule out Parra. The scope was then advanced with ease into the stomach and the large amount of retained undigested food was noted in the stomach precluding primarily visualization of the fundus and some of initially the proximal body. The mucosa overlying the body and the antrum revealed some patchy areas of erythema and low-grade edema, and biopsies were obtained and sent to stain for H. pylori. Pylorus was somewhat stenotic and that was dilated to size 20 mm per TTS balloon dilators. The scope was then advanced with ease into the duodenum all the way to the second portion, and biopsies were obtained from the proximal second portion and the duodenal bulb to rule out sprue. The scope was then withdrawn back into the stomach and several hyperplastic-appearing polyps were noted in the body of the stomach, some of which were partially excised with the cold biopsy forceps. The scope was then retroflexed in the stomach and the fundus could not be visualized due to the retained undigested food. The scope was then straightened out, it was subsequently withdrawn, and the patient tolerated the procedure well. IMPRESSION: 1. Distal esophagitis, mild. 2. Rule out Parra esophagus. 3. Large amount of retained undigested food in stomach, reflective of diabetic gastroparesis. 4. Gastric polyps, body, hyperplastic-appearing, some partially excised with the cold biopsy forceps. 5. Gastritis, biopsied, biopsies sent to stain for Helicobacter pylori. 6. 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 7. Rule out sprue. PLAN: Follow up histology. Increase Protonix to 40 mg one p.o. before meals b.i.d. Continue Reglan 10 mg one p.o. before meals t.i.d. and at bedtime. The patient will need a repeat EGD to optimally visualized the stomach, possibly after clear liquid diet the day prior. Robert Dale MD [facility] [place] /[id number] cc: Enoc Gusman DO
== END | disposition home or self-care (01) ==
LOC: ENDO 06:45
PROVIDERS: ATTEND Internal Medicine Gastroenterology
DX: K29.50 Unspecified chronic gastritis without bleeding (principal); K31.7 Polyp of stomach and duodenum; K31.1 Adult hypertrophic pyloric stenosis; E11.43 Type 2 diabetes mellitus with diabetic autonomic (poly)neuropathy; K31.84 Gastroparesis; K21.0 Gastro-esophageal reflux disease with esophagitis; K57.90 Diverticulosis of intestine, part unspecified, without perforation or abscess without bleeding; K28.9 Gastrojejunal ulcer, unspecified as acute or chronic, without hemorrhage or perforation; K52.9 Noninfective gastroenteritis and colitis, unspecified; Z86.010 Personal history of colon polyps; N20.0 Calculus of kidney; E03.9 Hypothyroidism, unspecified; Z01.810 Encounter for preprocedural cardiovascular examination; Z01.812 Encounter for preprocedural laboratory examination; Z11.59 Encounter for screening for other viral diseases; Z79.84 Long term (current) use of oral hypoglycemic drugs; Z68.43 Body mass index [BMI] 50.0-59.9, adult; Z80.0 Family history of malignant neoplasm of digestive organs
CPT/HCPCS: 36415; 43239; 43245; 81025; 82948; 93005; C1726; C9113; J2001; J2250; J2704; J2765; J3010; U0002; J1817

== ENCOUNTER 2021-04-05 11:51 | Emergency (ER) | payer OTHER ==
[~2021-04-05] VITALS: Ht 157.5 cm; Wt 133.8 kg
[~2021-04-05 11:51] MED LIST changes: -FENTANYL CITRATE/PF 100MCG/2 ML INJ ONE; -INSULIN REGULAR, HUMAN 100 UNIT/1 ML 3ML VIAL ONE; -LIDOCAINE HCL 2% LOCAL INJ 5 ML SDV VIAL INJ ONE; -METOCLOPRAMIDE HCL 10 MG/2ML VIAL ONE; -MIDAZOLAM HCL 2 MG/2 ML VIAL ONE; -PANTOPRAZOLE 40 MG 10ML VIAL ONE; -PROPOFOL IV EMULSION 10 MG/ML 20 ML VIAL ONE
[2021-04-05] MEDS ORDERED: KETOROLAC TROMETHAMINE 30 MG/ML VIAL IV PRN (12:15)
[2021-04-05] MEDS ORDERED: ONDANSETRON HCL INJ 2MG/ML 2ML 2 MG/ML VIAL IV PRN (12:15)
[2021-04-05] MEDS ORDERED: SODIUM CHLORIDE 0.9% 1000ML 1,000 ML IV SCH (12:15)
[2021-04-05 12:27] LABS: BASOPHILS % 0.6 % (0.0-1.0); EOSINOPHILS # (AUTO) 0.1 (0.0-0.4); EOSINOPHILS % 1.7 % (0.0-6.0); HEMATOCRIT 44.1 % (34.2-44.1); HEMOGLOBIN 14.3 g/dL (12.0-16.0); LYMPHOCYTES # (AUTO) 1.6 (1.0-3.2); LYMPHOCYTES % 25.6 % (18.0-39.1); MEAN CORPUSCULAR HEMOGLOBIN 28.9 pg (28-32); MEAN CORPUSCULAR HGB CONC 32.4 g/dL (31-35); MEAN CORPUSCULAR VOLUME 89.1 fL (81-99); MONOCYTES # (AUTO) 0.5 (0.2-0.8); NEUTROPHILS # (AUTO) 4.1 (2.1-6.9); NEUTROPHILS % 63.5 % (38.7-80.0); PLATELET COUNT 179 x10e3/uL (140-360); RED BLOOD COUNT 4.95 x10e6/uL (3.6-5.1); RED CELL DISTRIBUTION WIDTH 12.9 % (11.7-14.4)
[2021-04-05] MEDS ORDERED: TAMSULOSIN HCL 0.4 MG CAP PO SCH (12:30)
[2021-04-05 12:35] LABS: CLARITY,URINE CLEAR (CLEAR); COLOR,URINE YELLOW (YELLOW); LEUKOCYTE ESTERASE ,URINE NEGATIVE (NEGATIVE); NITRITE,URINE NEGATIVE (NEGATIVE); PROTEIN,URINE DIPSTICK NEGATIVE (NEGATIVE)
[2021-04-05 12:36] LABS: KETONES,URINE NEGATIVE (NEGATIVE)
[2021-04-05 12:40] LABS: BACTERIA,URINE MODERATE /HPF; EPITHELIAL CELLS,URINE MANY /LPF; RBC,URINE 0-5 /HPF (0-5); WBC,URINE (MAN) 0-5 /HPF (0-5)
[2021-04-05 12:40] LABS: ALBUMIN 3.7 g/dL (3.5-5.0); ALBUMIN/GLOBULIN RATIO 1.1 (0.8-2.0); ANION GAP 14.4 mmol/L (8-16); CALCIUM 9.1 mg/dL (8.4-10.2); CREATININE, SERUM 0.84 mg/dL (0.57-1.11); POTASSIUM 4.4 mmol/L (3.5-5.1)
[2021-04-05] MEDS ORDERED: ACETAMINOPHEN 325 MG TAB PO ONE (13:15)
[2021-04-05] MEDS ORDERED: ONDANSETRON ODT4 MG PO (14:23)
[2021-04-05] MEDS ORDERED: ANAPROX DS550 MG PO (14:23)
[2021-04-05 14:32] VITALS: BP 118/69
== END 2021-04-05 14:30 | disposition home or self-care (01) ==
LOC: ER 12:21
DX: R10.32 Left lower quadrant pain (principal); M54.50 Low back pain, unspecified; E11.65 Type 2 diabetes mellitus with hyperglycemia; K57.90 Diverticulosis of intestine, part unspecified, without perforation or abscess without bleeding; R16.1 Splenomegaly, not elsewhere classified; E03.9 Hypothyroidism, unspecified; E78.5 Hyperlipidemia, unspecified; K21.9 Gastro-esophageal reflux disease without esophagitis; E28.2 Polycystic ovarian syndrome
CPT/HCPCS: 36415; 74176; 80053; 81001; 84702; 85025; 99284; J1885; J2405; J7030

== ENCOUNTER 2021-06-14 15:59 | Emergency (ER) | payer OTHER ==
[~2021-06-14] VITALS: Ht 157.5 cm; Wt 133.8 kg
[~2021-06-14 15:59] MED LIST changes: +ANAPROX DS550 MG PO; +ONDANSETRON ODT4 MG PO
[2021-06-14 17:01] LABS: BASOPHILS % 0.5 % (0.0-1.0); EOSINOPHILS # (AUTO) 0.1 (0.0-0.4); EOSINOPHILS % 0.6 % (0.0-6.0); HEMATOCRIT 43.9 % (34.2-44.1); HEMOGLOBIN 14.9 g/dL (12.0-16.0); LYMPHOCYTES # (AUTO) 1.5 (1.0-3.2); LYMPHOCYTES % 18.6 % (18.0-39.1); MEAN CORPUSCULAR HEMOGLOBIN 29.6 pg (28-32); MEAN CORPUSCULAR HGB CONC 33.9 g/dL (31-35); MEAN CORPUSCULAR VOLUME 87.3 fL (81-99); MONOCYTES # (AUTO) 0.6 (0.2-0.8); MONOCYTES % 7.6 % (4.4-11.3); NEUTROPHILS # (AUTO) 5.7 (2.1-6.9); NEUTROPHILS % 72.2 % (38.7-80.0); PLATELET COUNT 197 x10e3/uL (140-360); RED BLOOD COUNT 5.03 x10e6/uL (3.6-5.1); RED CELL DISTRIBUTION WIDTH 12.8 % (11.7-14.4)
[2021-06-14 17:08] LABS: CLARITY,URINE CLEAR (CLEAR); COLOR,URINE YELLOW (YELLOW); KETONES,URINE NEGATIVE (NEGATIVE); LEUKOCYTE ESTERASE ,URINE NEGATIVE (NEGATIVE); NITRITE,URINE NEGATIVE (NEGATIVE); PROTEIN,URINE DIPSTICK NEGATIVE (NEGATIVE); URINE UROBILINOGEN 0.2 mg/dL (0.2 - 1)
[2021-06-14 17:13] LABS: BACTERIA,URINE RARE /HPF; EPITHELIAL CELLS,URINE MODERATE /LPF
[2021-06-14 17:18] LABS: ALBUMIN 3.8 g/dL (3.5-5.0); ALBUMIN/GLOBULIN RATIO 1.1 (0.8-2.0); ANION GAP 11.1 mmol/L (8-16); CALCIUM 8.7 mg/dL (8.4-10.2); CREATININE, SERUM 0.97 mg/dL (0.57-1.11); POTASSIUM 4.1 mmol/L (3.5-5.1)
[2021-06-14] MEDS ORDERED: PROMETHAZINE HC25 M1 PO (18:50)
[2021-06-14] MEDS ORDERED: METRONIDAZOLE500 MG PO (18:50)
== END 2021-06-14 18:59 | disposition home or self-care (01) ==
LOC: ER 16:51
DX: R10.32 Left lower quadrant pain (principal); K57.32 Diverticulitis of large intestine without perforation or abscess without bleeding; E11.65 Type 2 diabetes mellitus with hyperglycemia; E78.5 Hyperlipidemia, unspecified; E03.9 Hypothyroidism, unspecified; J45.909 Unspecified asthma, uncomplicated; K21.9 Gastro-esophageal reflux disease without esophagitis; Z87.442 Personal history of urinary calculi
CPT/HCPCS: 36415; 74176; 80053; 81001; 81025; 85025; 99284

== ENCOUNTER 2021-07-05 15:46 | Emergency (ER) | payer OTHER ==
[~2021-07-05] VITALS: Ht 157.5 cm; Wt 133.8 kg
[~2021-07-05 15:46] MED LIST changes: +METRONIDAZOLE500 MG PO
[2021-07-05] MEDS ORDERED: KETOROLAC TROMETHAMINE 30 MG/ML VIAL IV STA (16:05)
[2021-07-05] MEDS ORDERED: ONDANSETRON HCL INJ 2MG/ML 2ML 2 MG/ML VIAL IV PRN (16:15)
[2021-07-05 16:24] LABS: BASOPHILS % 0.6 % (0.0-1.0); EOSINOPHILS # (AUTO) 0.1 (0.0-0.4); HEMATOCRIT 44.2 % (34.2-44.1); HEMOGLOBIN 14.7 g/dL (12.0-16.0); LYMPHOCYTES # (AUTO) 1.2 (1.0-3.2); LYMPHOCYTES % 24.3 % (18.0-39.1); MEAN CORPUSCULAR HEMOGLOBIN 29.3 pg (28-32); MEAN CORPUSCULAR HGB CONC 33.3 g/dL (31-35); MEAN CORPUSCULAR VOLUME 88.2 fL (81-99); MONOCYTES # (AUTO) 0.4 (0.2-0.8); MONOCYTES % 8.4 % (4.4-11.3); NEUTROPHILS # (AUTO) 3.1 (2.1-6.9); NEUTROPHILS % 65.3 % (38.7-80.0); PLATELET COUNT 173 x10e3/uL (140-360); RED BLOOD COUNT 5.01 x10e6/uL (3.6-5.1); RED CELL DISTRIBUTION WIDTH 12.7 % (11.7-14.4)
[2021-07-05 16:43] LABS: ALBUMIN 3.7 g/dL (3.5-5.0); CALCIUM 8.5 mg/dL (8.4-10.2); CREATININE, SERUM 0.9 mg/dL (0.57-1.11)
[2021-07-05] MEDS ORDERED: ONDANSETRON ODT4 MG PO (17:54)
[2021-07-05] MEDS ORDERED: CEFDINIR300 MG PO (17:54)
[2021-07-05] MEDS ORDERED: ULTRAM 50MG50 MG PO (17:54)
[2021-07-05] MEDS ORDERED: PROMETHAZINE 25MG/ NS 50ML (IV) IV STA (18:12)
[2021-07-05] MEDS ORDERED: SODIUM CHLORIDE 0.9% 1000ML 1,000 ML IV STA (18:12)
[2021-07-05 18:21] LABS: CLARITY,URINE SL CLOUDY (CLEAR); COLOR,URINE AMBER (YELLOW); KETONES,URINE NEGATIVE (NEGATIVE); LEUKOCYTE ESTERASE ,URINE NEGATIVE (NEGATIVE); NITRITE,URINE NEGATIVE (NEGATIVE); PROTEIN,URINE DIPSTICK 1+ (NEGATIVE); URINE UROBILINOGEN 1 mg/dL (0.2 - 1)
[2021-07-05 18:34] LABS: BACTERIA,URINE FEW /HPF; EPITHELIAL CELLS,URINE MODERATE /LPF; RBC,URINE 0-5 /HPF (0-5)
[2021-07-05] MEDS ORDERED: Morphine 4mg Syringe 4 MG/ML INJ IV STA (18:42)
[2021-07-05] MEDS ORDERED: ONDANSETRON HCL INJ 2MG/ML 2ML 2 MG/ML VIAL IV STA (18:42)
[2021-07-05] MEDS ORDERED: PROMETHAZINE HC25 M1 PO ×2 (19:21→19:26)
[2021-07-05] MEDS ORDERED: ACETAMINOPHEN-1 EAC4 PO ×2 (19:21→19:23)
[2021-07-05] MEDS ORDERED: PEPCID20 MG PO ×2 (19:21→19:26)
[2021-07-05 20:52] VITALS: BP 131/87
== END 2021-07-05 19:43 | disposition home or self-care (01) ==
LOC: ER 15:51
DX: R10.9 Unspecified abdominal pain (principal); E28.2 Polycystic ovarian syndrome; K57.30 Diverticulosis of large intestine without perforation or abscess without bleeding; Z88.1 Allergy status to other antibiotic agents; Z79.84 Long term (current) use of oral hypoglycemic drugs; Z79.899 Other long term (current) drug therapy; Z87.442 Personal history of urinary calculi; Z87.440 Personal history of urinary (tract) infections
CPT/HCPCS: 36415; 74176; 80053; 81001; 83690; 84702; 85025; 99284; J1885; J2405; J2550; J7030

== ENCOUNTER 2022-01-03 18:53 | Emergency (ER) | payer OTHER ==
[~2022-01-03] VITALS: Ht 157.5 cm; Wt 133.8 kg
[~2022-01-03 18:53] MED LIST changes: +ACETAMINOPHEN-1 EAC4 PO; +CEFDINIR300 MG PO; +PEPCID20 MG PO; +ULTRAM 50MG50 MG PO
[2022-01-03] MEDS ORDERED: KETOROLAC TROMETHAMINE 60 MG/2 ML VIAL IM ONE (19:15)
[2022-01-03 19:35] LABS: CLARITY,URINE SL CLOUDY (CLEAR); COLOR,URINE AMBER (YELLOW); KETONES,URINE NEGATIVE (NEGATIVE); LEUKOCYTE ESTERASE ,URINE NEGATIVE (NEGATIVE); NITRITE,URINE NEGATIVE (NEGATIVE); PROTEIN,URINE DIPSTICK NEGATIVE (NEGATIVE); URINE UROBILINOGEN 1 mg/dL (0.2 - 1)
[2022-01-03 19:46] LABS: BACTERIA,URINE MODERATE /HPF; EPITHELIAL CELLS,URINE FEW /LPF
[2022-01-03] MEDS ORDERED: PYRIDIUM100 MG PO (22:27)
== END 2022-01-03 22:48 | disposition home or self-care (01) ==
LOC: ER 19:12
DX: R30.0 Dysuria (principal); R10.30 Lower abdominal pain, unspecified; M54.50 Low back pain, unspecified; E11.9 Type 2 diabetes mellitus without complications; K57.90 Diverticulosis of intestine, part unspecified, without perforation or abscess without bleeding; E78.5 Hyperlipidemia, unspecified; E03.9 Hypothyroidism, unspecified; K21.9 Gastro-esophageal reflux disease without esophagitis; J45.909 Unspecified asthma, uncomplicated; Z87.442 Personal history of urinary calculi
CPT/HCPCS: 74176; 81001; 81025; 99283; J1885